=== PATIENT | male | born 1995 | race Two or more races ===

== ENCOUNTER 2023-05-10 07:00 | Inpatient (IN) | payer MEDICAID, OTHER ==
[~2023-05-10] VITALS: Ht 182.9 cm; Wt 158.0 kg
[2023-05-10 07:48] LABS: Basophils # (auto) 0.1 10 ^3/uL (0-0.2); Basophils % (auto) 0.4 % (0.0-2.0); Eosinophils # (auto) 0.1 10 ^3/uL (0-0.8); Eosinophils % (auto) 0.5 % (0.0-7.0); Hematocrit 28.1 % (41.0-53.0); Hemoglobin 9.1 g/dL (13.5-17.5); Lymphocytes % (auto) 14.3 % (10.0-50.0); Mean Corpuscular Hemoglobin 28.5 pg (28.0-32.0); Mean Corpuscular Hgb Conc. 32.4 g/dL (32.0-36.0); Mean Corpuscular Volume 87.9 fL (80.0-100.0); Monocytes # (auto) 2.3 10 ^3/uL (0-1.3); Monocytes % (auto) 10.9 % (0.0-12.0); Neutrophils # (auto) 15.4 10 ^3/uL (1.6-8.6); Neutrophils % (auto) 73.9 % (37.0-80.0); Nucleated Red Blood Cells % 0.2 %; Red Blood Cells 3.19 10^6/uL (4.5-5.90); Red Cell Distribution Width 22.7 % (11.8-14.3); White Blood Cell 20.8 10^3/uL (4.4-10.8)
[2023-05-10 08:03] LABS: Alanine Aminotransferase 21 U/L (7-40); Albumin 4.7 g/dL (3.2-4.8); Alkaline Phosphatase 73 U/L (46-116); Anion Gap 9 (5-15); Aspartate Aminotransferase 18 U/L (13-40); BUN/Creatinine Ratio 20.7 (10.0-20.0); Bilirubin, Total 3.1 mg/dL (0.2-1.0); Blood Urea Nitrogen 12 mg/dL (9-23); Calcium 9.6 mg/dL (8.5-10.1); Carbon Dioxide 24 mmol/L (20-30); Chloride 105 mmol/L (98-107); Glucose 93 mg/dL (74-106); Potassium 3.9 mmol/L (3.5-5.1); Sodium 138 mmol/L (136-145)
[2023-05-10 09:07] LABS: Magnesium 2.2 mg/dL (1.6-2.6)
[2023-05-10 09:19] LABS: INR 1.18 (0.9-1.15); Partial Thromboplastin Time 26.4 SEC (24.5-34.5); Prothrombin Time 12.3 sec (9.3-11.8)
[2023-05-10] MEDS ORDERED: SODIUM CHLORIDE 0.9% 1,000 ML IV ONE (10:15)
[2023-05-10] MEDS ORDERED: HYDROmorphone HCL 2 MG/ML VL/or syr IV ONE ×3 (10:15→15:00)
[2023-05-10] MEDS ORDERED: KETOROLAC TROMETH 30 MG/ML 1ML VIAL IV ONE (10:15)
[2023-05-10 10:25] VITALS: PULSE 92; RESP 22; O2SAT 97
[2023-05-10] MEDS ORDERED: PROMETHAZINE HCL 25 MG/ML 1ML IV ONE (14:00)
[2023-05-10] MEDS: SODIUM CHLORIDE 0.9% 1,000 ML IV SCH ×2 (15:00→23:20)
[2023-05-10] MEDS ORDERED: SODIUM CHLORIDE 0.9% 2,000 ML IV ONE (15:00)
[2023-05-10] MEDS ORDERED: ONDANSETRON HCL 4 MG/2 ML VIAL IV PRN (15:00)
[2023-05-10] MEDS ORDERED: DOCU-265 PO (15:18)
[2023-05-10] MEDS ORDERED: OXYC-113 PO (15:18)
[2023-05-10] MEDS ORDERED: [UNRECOGNIZED DRUG - CODE] PO (15:18)
[2023-05-10] MEDS ORDERED: FOLI-119 PO (15:18)
[2023-05-10 15:47] LABS: Urine Bacteria NONE SEEN /hpf (None Seen); Urine Blood Negative /uL (Negative); Urine Clarity Clear (Clear); Urine Color Yellow (Yellow); Urine Mucus FEW (None Seen); Urine Protein, UAD TRACE (Negative); Urine Specific Gravity 1.015 (1.001-1.035); Urine Urobilinogen Normal (Negative); Urine WBC 1 /hpf (0 - 3); Urine pH 6.5 (5.0-8.0)
[2023-05-10 18:20] VITALS: BP 102/54; PULSE 99; RESP 20; TEMP 98.1; O2SAT 95
[2023-05-10] MEDS: HYDROmorphone HCL 2 MG/ML VL/or syr IV PRN ×2 (18:42→21:45)
[2023-05-10] MEDS ORDERED: FOLITAB22 PO (19:11)
[2023-05-10] MEDS ORDERED: PERCOT PO (19:11)
[2023-05-10 20:00] VITALS: BP 107/52; PULSE 99; RESP 17; RESP 18; TEMP 99.8; O2SAT 99
[2023-05-10] MEDS: ACETAMINOPHEN 325 MG TAB PO PRN (20:57)
[2023-05-10 22:00] VITALS: BP 107/52; PULSE 99; RESP 17; TEMP 101.9; O2SAT 93
[2023-05-11] VITALS (8 sets, daily range): BP systolic 103–111; BP diastolic 58–65; PULSE 96–109; RESP 14–19; TEMP 98.5–102.4; O2SAT 95–98
[2023-05-11] MEDS: HYDROmorphone HCL 2 MG/ML VL/or syr IV PRN ×7 (01:19→23:47)
[2023-05-11] MEDS: HYDROcodone-ACET 5/325MG TAB PO PRN ×3 (03:27→15:13)
[2023-05-11 07:01] LABS: Eosinophils # (auto) 0.1 10 ^3/uL (0-0.8); Eosinophils % (auto) 0.4 % (0.0-7.0); Lymphocytes # (auto) 4.3 10 ^3/uL (0.4-5.4); Monocytes # (auto) 2.6 10 ^3/uL (0-1.3); Nucleated Red Blood Cells % 0.1 %; Red Blood Cells 2.95 10^6/uL (4.5-5.90)
[2023-05-11 07:03] LABS: Basophils # (auto) 0.1 10 ^3/uL (0-0.2); Basophils % (auto) 0.5 % (0.0-2.0); Hematocrit 25.5 % (41.0-53.0); Hemoglobin 8.2 g/dL (13.5-17.5); Lymphocytes % (auto) 17.1 % (10.0-50.0); Mean Corpuscular Hemoglobin 27.7 pg (28.0-32.0); Mean Corpuscular Hgb Conc. 32.1 g/dL (32.0-36.0); Mean Corpuscular Volume 86.4 fL (80.0-100.0); Monocytes % (auto) 10.6 % (0.0-12.0); Neutrophils # (auto) 17.8 10 ^3/uL (1.6-8.6); Neutrophils % (auto) 71.4 % (37.0-80.0); Red Cell Distribution Width 21.6 % (11.8-14.3); White Blood Cell 24.9 10^3/uL (4.4-10.8)
[2023-05-11] MEDS: SODIUM CHLORIDE 0.9% 1,000 ML IV SCH ×2 (07:40→17:29)
[2023-05-11 07:59] LABS: Alanine Aminotransferase 12 U/L (7-40); Albumin 4.3 g/dL (3.2-4.8); Alkaline Phosphatase 62 U/L (46-116); Anion Gap 11 (5-15); BUN/Creatinine Ratio 19.3 (10.0-20.0); Blood Urea Nitrogen 11 mg/dL (9-23); Calcium 9.1 mg/dL (8.5-10.1); Carbon Dioxide 22 mmol/L (20-30); Chloride 104 mmol/L (98-107); Glucose 81 mg/dL (74-106); Potassium 3.3 mmol/L (3.5-5.1); Sodium 137 mmol/L (136-145)
[2023-05-11 08:00] LABS: Aspartate Aminotransferase 13 U/L (13-40); Total Protein 7.5 g/dL (5.7-8.2)
[2023-05-11 09:11] LABS: Platelet Estimate 371
[2023-05-11] MEDS: ACETAMINOPHEN 325 MG TAB PO PRN ×2 (13:07→20:12)
[2023-05-11] MEDS ORDERED: metroNIDAZOLE 500MG/100ML 100 ML IV ONE (16:30)
[2023-05-11] MEDS ORDERED: levoFLOXacin 500MG 100 ML IV ONE (16:30)
[2023-05-11] MEDS ORDERED: KETOROLAC TROMETH 30 MG/ML 1ML VIAL IV ONE (16:30)
[2023-05-11] MEDS ORDERED: IBUPROFEN 600 MG TAB PO ONE (23:00)
[2023-05-12] MEDS: SODIUM CHLORIDE 0.9% 1,000 ML IV SCH ×2 (00:20→10:11)
[2023-05-12 01:00] VITALS: TEMP 98.8
[2023-05-12] MEDS: HYDROmorphone HCL 2 MG/ML VL/or syr IV PRN ×7 (03:17→22:07)
[2023-05-12 04:58] VITALS: BP 102/60; PULSE 95; RESP 17; TEMP 98.2; O2SAT 97
[2023-05-12 08:52] VITALS: BP 101/60; PULSE 87; RESP 16; TEMP 98; O2SAT 98
[2023-05-12] MEDS ORDERED: HYDROcodone-ACET 5/325MG TAB PO PRN (09:00)
[2023-05-12] MEDS ORDERED: KETOROLAC TROMETH 30 MG/ML 1ML VIAL IV PRN (09:15)
[2023-05-12 09:20] LABS: Hepatitis B Surface Antigen Negative (Negative)
[2023-05-12 09:45] LABS: Hepatitis C Antibody Negative (Negative)
[2023-05-12] MEDS: levoFLOXacin 500MG 100 ML IV SCH (10:11)
[2023-05-12 13:07] LABS: Basophils # (auto) 0.1 10 ^3/uL (0-0.2); Lymphocytes # (auto) 0.6 10 ^3/uL (0.4-5.4); Lymphocytes % (auto) 2.8 % (10.0-50.0); Nucleated Red Blood Cells % 0.1 %; White Blood Cell 22.9 10^3/uL (4.4-10.8)
[2023-05-12 13:09] LABS: Basophils % (auto) 0.4 % (0.0-2.0); Eosinophils # (auto) 0.1 10 ^3/uL (0-0.8); Eosinophils % (auto) 0.4 % (0.0-7.0); Mean Corpuscular Hemoglobin 27.3 pg (28.0-32.0); Mean Corpuscular Hgb Conc. 31.8 g/dL (32.0-36.0); Mean Corpuscular Volume 85.9 fL (80.0-100.0); Monocytes % (auto) 13.1 % (0.0-12.0); Neutrophils # (auto) 19.1 10 ^3/uL (1.6-8.6); Neutrophils % (auto) 83.3 % (37.0-80.0); Red Blood Cells 2.91 10^6/uL (4.5-5.90)
[2023-05-12 13:18] LABS: Red Cell Distribution Width 22.8 % (11.8-14.3)
[2023-05-12 13:27] LABS: % Iron Saturation 10.7 % (20-55)
[2023-05-12 13:28] LABS: Alanine Aminotransferase 18 U/L (7-40); Albumin 4.5 g/dL (3.2-4.8); Alkaline Phosphatase 74 U/L (46-116); Anion Gap 8 (5-15); Aspartate Aminotransferase 24 U/L (13-40); BUN/Creatinine Ratio 15.4 (10.0-20.0); Bilirubin, Total 2.9 mg/dL (0.2-1.0); Blood Urea Nitrogen 8 mg/dL (9-23); Calcium 9.2 mg/dL (8.5-10.1); Carbon Dioxide 24 mmol/L (20-30); Chloride 105 mmol/L (98-107); Glucose 91 mg/dL (74-106); Potassium 3.5 mmol/L (3.5-5.1); Sodium 137 mmol/L (136-145)
[2023-05-12 13:31] LABS: Folate (Folic Acid) 21.98 ng/mL (>5.38)
[2023-05-12] MEDS: D5W/SOD CHL 0.45% 1,000 ML IV SCH ×2 (14:06→20:27)
[2023-05-12 16:30] VITALS: BP 100/52; PULSE 104; RESP 18; TEMP 98.1; O2SAT 97
[2023-05-12 19:30] VITALS: PULSE 102; RESP 17
[2023-05-12] MEDS: traZODone HCL 50 MG TAB PO SCH (21:05)
[2023-05-12 22:00] VITALS: BP 101/48; PULSE 106; RESP 16; TEMP 98.4; O2SAT 97
[2023-05-13] MEDS: HYDROmorphone HCL 2 MG/ML VL/or syr IV PRN ×5 (02:17→21:20)
[2023-05-13] MEDS: D5W/SOD CHL 0.45% 1,000 ML IV SCH ×3 (03:41→21:25)
[2023-05-13 05:00] VITALS: BP 101/52; PULSE 98; RESP 15; TEMP 98.6; O2SAT 97
[2023-05-13 07:15] LABS: Anion Gap 7 (5-15); Carbon Dioxide 26 mmol/L (20-30); Chloride 102 mmol/L (98-107); Sodium 135 mmol/L (136-145)
[2023-05-13 07:17] LABS: Calcium 8.8 mg/dL (8.7-10.4)
[2023-05-13 07:21] LABS: Glucose 92 mg/dL (74-106)
[2023-05-13 07:22] LABS: BUN/Creatinine Ratio 12.7 (10.0-20.0); Blood Urea Nitrogen 7 mg/dL (9-23)
[2023-05-13 07:33] LABS: Hematocrit 22.7 % (41.0-53.0); Hemoglobin 7.6 g/dL (13.5-17.5); Mean Corpuscular Hemoglobin 27.9 pg (28.0-32.0); Mean Corpuscular Hgb Conc. 33.3 g/dL (32.0-36.0); Mean Corpuscular Volume 83.7 fL (80.0-100.0); Red Blood Cells 2.71 10^6/uL (4.5-5.90); White Blood Cell 15.9 10^3/uL (4.4-10.8)
[2023-05-13 07:40] LABS: Band Neutrophils % (manual) 0; Basophils % (manual) 0 (0.0-2.0); Blast Cells 0; Metamyelocytes % 0; Myelocytes % 0; Promyelocytes % 0; Reactive Lymphocytes 0; Red Cell Distribution Width 23.3 % (11.8-14.3)
[2023-05-13] MEDS ORDERED: POTASSIUM CHL 20MEQ/100ML 100 ML IV ONE (07:45)
[2023-05-13 08:16] LABS: Eosinophils % (manual) 1 (0-7); Lymphocytes % (manual) 6 (10.0-50.0); Monocytes % (manual) 14 (0-12)
[2023-05-13 08:17] LABS: Platelet Estimate Adequate
[2023-05-13 09:00] VITALS: BP 103/53; PULSE 88; RESP 19; TEMP 99.5; O2SAT 100
[2023-05-13] MEDS: levoFLOXacin 500MG 100 ML IV SCH (09:55)
[2023-05-13 12:30] VITALS: BP 101/55; PULSE 92; RESP 18; TEMP 99.5; O2SAT 97
[2023-05-13 16:44] VITALS: BP 100/57; PULSE 77; RESP 19; TEMP 99.4; O2SAT 98
[2023-05-13] MEDS: traZODone HCL 50 MG TAB PO SCH (21:20)
[2023-05-13 22:00] VITALS: BP 104/47; PULSE 102; RESP 20; TEMP 100.3; O2SAT 100
[2023-05-13 23:00] VITALS: TEMP 99.4
[2023-05-14] VITALS (12 sets, daily range): BP systolic 99–111; BP diastolic 52–60; PULSE 80–99; RESP 16–18; TEMP 98.4–99.6; O2SAT 96–99
[2023-05-14] MEDS: HYDROmorphone HCL 2 MG/ML VL/or syr IV PRN ×6 (03:38→22:32)
[2023-05-14] MEDS ORDERED: POTASSIUM CHL 20 Meq TABLET PO ONE (08:30)
[2023-05-14 08:57] LABS: Anion Gap 7 (5-15); Carbon Dioxide 26 mmol/L (20-30); Chloride 103 mmol/L (98-107); Potassium 3.3 mmol/L (3.5-5.1); Sodium 136 mmol/L (136-145)
[2023-05-14 08:58] LABS: Calcium 9.2 mg/dL (8.5-10.1)
[2023-05-14 08:59] LABS: Hematocrit 22.6 % (41.0-53.0); Hemoglobin 7.3 g/dL (13.5-17.5); White Blood Cell 11.5 10^3/uL (4.4-10.8)
[2023-05-14 09:02] LABS: Mean Corpuscular Hemoglobin 26.4 pg (28.0-32.0); Mean Corpuscular Hgb Conc. 32.2 g/dL (32.0-36.0); Mean Corpuscular Volume 82.1 fL (80.0-100.0); Red Blood Cells 2.75 10^6/uL (4.5-5.90)
[2023-05-14 09:03] LABS: BUN/Creatinine Ratio 11.4 (10.0-20.0); Blood Urea Nitrogen 5 mg/dL (9-23); Glucose 97 mg/dL (74-106)
[2023-05-14 09:05] LABS: Red Cell Distribution Width 24.8 % (11.8-14.3)
[2023-05-14 09:07] LABS: Band Neutrophils % (manual) 0; Basophils % (manual) 0 (0.0-2.0); Blast Cells 0; Metamyelocytes % 0; Myelocytes % 0; Promyelocytes % 0; Reactive Lymphocytes 0
[2023-05-14] MEDS: levoFLOXacin 500MG 100 ML IV SCH (10:31)
[2023-05-14] MEDS: D5W/SOD CHL 0.45% 1,000 ML IV SCH ×2 (12:30→22:30)
[2023-05-14 12:56] LABS: Eosinophils % (manual) 1 (0-7); Lymphocytes % (manual) 14 (10.0-50.0); Monocytes % (manual) 17 (0-12)
[2023-05-14 12:57] LABS: Anisocytosis Moderate; Platelet Estimate Adequate
[2023-05-14] MEDS ORDERED: HALOPERIDOL LACTATE 5 MG/ML INJ VIAL IM PRN (17:00)
[2023-05-14] MEDS: QUEtiapine FUMARATE 25 MG TAB PO SCH (21:33)
[2023-05-14] MEDS: traZODone HCL 50 MG TAB PO SCH (21:33)
[2023-05-15] VITALS (8 sets, daily range): BP systolic 100–107; BP diastolic 54–66; PULSE 78–99; RESP 16–17; TEMP 98–98.9; O2SAT 97–99
[2023-05-15] MEDS: HYDROmorphone HCL 2 MG/ML VL/or syr IV PRN ×6 (01:34→20:27)
[2023-05-15 07:37] LABS: Anion Gap 10 (5-15); Carbon Dioxide 24 mmol/L (20-30); Chloride 104 mmol/L (98-107); Potassium 3.7 mmol/L (3.5-5.1); Sodium 138 mmol/L (136-145)
[2023-05-15 07:38] LABS: Calcium 9.3 mg/dL (8.5-10.1); Hemoglobin 8.3 g/dL (13.5-17.5); Mean Corpuscular Volume 81.5 fL (80.0-100.0); White Blood Cell 8.5 10^3/uL (4.4-10.8)
[2023-05-15 07:40] LABS: Hematocrit 25.7 % (41.0-53.0); Mean Corpuscular Hemoglobin 26.4 pg (28.0-32.0); Mean Corpuscular Hgb Conc. 32.4 g/dL (32.0-36.0); Red Blood Cells 3.15 10^6/uL (4.5-5.90)
[2023-05-15 07:41] LABS: Red Cell Distribution Width 24.5 % (11.8-14.3)
[2023-05-15 07:42] LABS: Band Neutrophils % (manual) 0; Basophils % (manual) 0 (0.0-2.0); Blast Cells 0; Metamyelocytes % 0; Myelocytes % 0; Promyelocytes % 0; Reactive Lymphocytes 0
[2023-05-15 07:43] LABS: BUN/Creatinine Ratio 12.2 (10.0-20.0); Blood Urea Nitrogen 6 mg/dL (9-23); Glucose 86 mg/dL (74-106)
[2023-05-15] MEDS: D5W/SOD CHL 0.45% 1,000 ML IV SCH ×2 (08:30→17:33)
[2023-05-15 09:46] LABS: Eosinophils % (manual) 3 (0-7); Lymphocytes % (manual) 29 (10.0-50.0); Monocytes % (manual) 22 (0-12); Platelet Estimate Increased
[2023-05-15] MEDS ORDERED: TRAM50TA2 PO (12:29)
[2023-05-15] MEDS ORDERED: QUET50TA PO (12:52)
[2023-05-15] MEDS ORDERED: TRAZ-227 PO (12:53)
[2023-05-15] MEDS: levoFLOXacin 500MG 100 ML IV SCH (14:26)
[2023-05-15] MEDS: QUEtiapine FUMARATE 25 MG TAB PO SCH (21:34)
[2023-05-15] MEDS: traZODone HCL 50 MG TAB PO SCH (21:34)
[2023-05-16] MEDS: HYDROmorphone HCL 2 MG/ML VL/or syr IV PRN ×5 (03:01→11:56)
[2023-05-16] MEDS: D5W/SOD CHL 0.45% 1,000 ML IV SCH (04:30)
[2023-05-16 04:36] VITALS: BP 98/60; PULSE 76; RESP 16; TEMP 98; O2SAT 98
[2023-05-16 07:14] LABS: Anion Gap 10 (5-15); Carbon Dioxide 24 mmol/L (20-30); Chloride 104 mmol/L (98-107); Potassium 3.6 mmol/L (3.5-5.1); Sodium 138 mmol/L (136-145)
[2023-05-16 07:15] LABS: Calcium 9.3 mg/dL (8.5-10.1)
[2023-05-16 07:20] LABS: BUN/Creatinine Ratio 15.7 (10.0-20.0); Blood Urea Nitrogen 8 mg/dL (9-23); Glucose 94 mg/dL (74-106)
[2023-05-16 07:31] LABS: Hemoglobin 9.7 g/dL (13.5-17.5); Mean Corpuscular Hgb Conc. 31.4 g/dL (32.0-36.0); Mean Corpuscular Volume 82.8 fL (80.0-100.0); Red Blood Cells 3.74 10^6/uL (4.5-5.90); White Blood Cell 9.3 10^3/uL (4.4-10.8)
[2023-05-16 07:39] LABS: Red Cell Distribution Width 24.7 % (11.8-14.3)
[2023-05-16 07:40] LABS: Band Neutrophils % (manual) 0; Basophils % (manual) 0 (0.0-2.0); Blast Cells 0; Metamyelocytes % 0; Myelocytes % 0; Promyelocytes % 0; Reactive Lymphocytes 0
[2023-05-16 08:00] VITALS: PULSE 79; PULSE 80; RESP 16
[2023-05-16] MEDS: levoFLOXacin 500MG 100 ML IV SCH (08:55)
[2023-05-16 09:00] VITALS: BP 97/56; PULSE 79; RESP 16; TEMP 98.6; O2SAT 95
[2023-05-16 11:07] VITALS: BP 97/56; PULSE 79; RESP 16; TEMP 37; O2SAT 95
[2023-05-16 12:51] LABS: Eosinophils % (manual) 3 (0-7); Lymphocytes % (manual) 15 (10.0-50.0); Monocytes % (manual) 16 (0-12)
[2023-05-16 12:52] LABS: Anisocytosis Moderate; Platelet Estimate Adequate
[2023-05-16 13:00] VITALS: BP 100/62; PULSE 88; RESP 16; TEMP 98.1; O2SAT 99
== END 2023-05-16 14:10 | disposition home or self-care (01) | DRG 720 ==
LOC: ER 07:00 → OVERFLOW 14:53 → CENTRAL 18:11 → TELE-CENTR 05-12 10:30 → TELE-WESTW 05-12 11:05
PROVIDERS: ADMIT Internal Medicine; ATTEND Internal Medicine
PROC: 30233N1 Transfusion of Nonautologous Red Blood Cells into Peripheral Vein, Percutaneous Approach (ICD-10-PCS; principal; 2023-05-14)
DX: A41.9 Sepsis, unspecified organism (principal); J15.69 Pneumonia due to other Gram-negative bacteria; D57.00 Hb-SS disease with crisis, unspecified; F12.10 Cannabis abuse, uncomplicated; R53.81 Other malaise; K59.00 Constipation, unspecified; M54.9 Dorsalgia, unspecified; F32.A Depression, unspecified; G47.00 Insomnia, unspecified; F41.9 Anxiety disorder, unspecified; Z20.822 Contact with and (suspected) exposure to COVID-19; R07.89 Other chest pain; Z59.00 Homelessness unspecified; Z83.2 Family history of diseases of the blood and blood-forming organs and certain disorders involving the immune mechanism; Z83.3 Family history of diabetes mellitus; Z88.0 Allergy status to penicillin; Z85.858 Personal history of malignant neoplasm of other endocrine glands
CPT/HCPCS: 36415; 71045; 71046; 74176; 80048; 80053; 81001; 82607; 82746; 83540; 83550; 83615; 83735; 84443; 84484; 85007; 85025; 85027; 85045; 85610; 85730; 86803; 86850; 86900; 86901; 86920; 87040; 87081; 87340; 93005; 96361; 96374; 96375; 96376; G0378; J1885; J1956; J3480; J3490